=== PATIENT | male | born 1990 | race Hispanic/Latino ===

== ENCOUNTER 2016-05-30 17:34 | Emergency (ER) | payer OTHER | END 2016-05-30 19:33 | disposition home or self-care (01) | LOC: ER 17:34 | CPT/HCPCS: 87880 ==

== ENCOUNTER 2016-06-23 08:30 | Emergency (ER) | payer OTHER ==
[2016-06-23] MEDS ORDERED: DIPHENHYDRAMINE 25 MG CAP ONE (10:03)
[2016-06-23] MEDS ORDERED: DEXAMETHASONE 4 MG/ML VIAL ONE (10:03)
[2016-06-23] MEDS ORDERED: FAMOTIDINE 20 MG TAB ONE (10:03)
== END 2016-06-23 10:33 | disposition home or self-care (01) ==
LOC: ER 08:30
DX: R21 Rash and other nonspecific skin eruption (principal)
CPT/HCPCS: 96372